=== PATIENT | male | born 1985 | race Two or more races ===

== ENCOUNTER 2017-04-13 19:17 | Emergency (ER) | payer OTHER ==
[~2017-04-13 19:17] MED LIST: CARV6.2551 PO; LEVO750T64 PO; SPIR25TA89 PO
[2017-04-13 19:44] VITALS: BP 97/68
[2017-04-13 21:20] LABS: Albumin 2.8 g/dL (3.4-5.0); Calcium 8.2 mg/dL (8.5-10.1); Potassium 3.3 mmol/L (3.5-5.1)
[2017-04-13 21:22] LABS: BUN/Creatinine Ratio 70.9
[2017-04-13 21:23] LABS: INR 1.23 (0.9-1.15); Partial Thromboplastin Time 30.4 sec (22.64-33.71)
[2017-04-13 21:24] LABS: Basophils # (auto) 0 uL; Basophils % (auto) 0.6 % (0.0-2.0); Bilirubin, Total 2.3 mg/dL (0.2-1.0); CONDITION Y; Eosinophils # (auto) 0.1 uL; Eosinophils % (auto) 2.2 % (0.0-7.0); Hematocrit 27.2 % (41.0-53.0); Hemoglobin 8.8 g/dL (13.5-17.5); Lymphocytes # (auto) 1.4 uL; Lymphocytes % (auto) 25.8 % (10.0-50.0); Mean Corpuscular Hemoglobin 29.6 pg (28.0-32.0); Mean Corpuscular Hgb Conc. 32.5 g/dL (32.0-36.0); Mean Corpuscular Volume 91.1 fL (80.0-100.0); Mean Platelet Volume 9.3 fL (7.4-10.4); Monocytes # (auto) 0.4 uL; Monocytes % (auto) 6.7 % (0.0-12.0); Neutrophils # (auto) 3.5 uL; Neutrophils % (auto) 64.7 % (37.0-80.0); Platelet Count (auto) 178 10^3/uL (140-450); Prothrombin Time 13.4 sec (9.37-12.3); Red Cell Distribution Width 18.5 % (11.6-16.0); Total Protein 8.9 g/dL (6.4-8.2); White Blood Cell 5.5 10^3/uL (4.4-10.8)
[2017-04-13 21:57] LABS: Urine Bilirubin Negative (Negative); Urine Blood Negative /uL (Negative); Urine Color Yellow (Yellow); Urine Glucose Normal (Normal); Urine Ketone Negative (Negative); Urine Nitrite Negative (Negative); Urine RBC <1 /hpf (0 - 3); Urine Urobilinogen Normal (Negative)
[2017-04-13] MEDS ORDERED: POTASSIUM CHL 20 Meq TABLET PO ONE (23:30)
== END 2017-04-13 23:48 | disposition home or self-care (01) ==
LOC: ER 19:21
DX: I83.92 Asymptomatic varicose veins of left lower extremity (principal); E87.6 Hypokalemia; N17.9 Acute kidney failure, unspecified; I50.9 Heart failure, unspecified; B19.20 Unspecified viral hepatitis C without hepatic coma; F17.210 Nicotine dependence, cigarettes, uncomplicated; F19.10 Other psychoactive substance abuse, uncomplicated; Z79.899 Other long term (current) drug therapy
CPT/HCPCS: 36415; 80053; 80307; 81001; 85025; 85610; 85730; 86850; 86900; 86901